=== PATIENT | female | born 1975 | race Caucasian/White ===

== ENCOUNTER 2017-05-12 12:54 | Emergency (ER) | payer OTHER ==
[~2017-05-12] VITALS: Ht 162.6 cm; Wt 70.3 kg
[~2017-05-12 12:54] MED LIST: CITRATE OF MAG296 ML PO; DEPAKOTE125 MG PO; FLEET ENEMA EX230 ML RC; GENTLE LAXATIVE5 M1 PO; NEURONTIN 300M300 M2 PO; OMEPRAZOLE 20 M20 M1 PO; PAXIL10 MG PO; PURELAX17 GM PO; XANAX 0.25 MG0.25 MG PO; ZOFRAN ODT4 MG PO
[2017-05-12] MEDS ORDERED: KEFLEX500 MG PO (13:00)
[2017-05-12] MEDS ORDERED: PERCOCET PO (13:00)
[2017-05-12] MEDS ORDERED: METHYLPHENIDATE10 MG PO (13:01)
[2017-05-12] MEDS ORDERED: LEXAPRO20 MG PO (13:01)
[2017-05-12] MEDS ORDERED: PREDNISONE 20 M20 MG PO ×2 (16:53→17:01)
[2017-05-12] MEDS ORDERED: BENADRYL25 MG PO ×2 (16:53→17:01)
[2017-05-12 16:54] VITALS: BP 111/64
[2017-05-12] MEDS ORDERED: EPIPEN 2-P0.3 MG/0.3 IM (16:55)
== END 2017-05-12 16:54 | disposition home or self-care (01) ==
LOC: ER 12:54
DX: T78.09XA Anaphylactic reaction due to other food products, initial encounter (principal); F31.9 Bipolar disorder, unspecified; F41.9 Anxiety disorder, unspecified; F17.210 Nicotine dependence, cigarettes, uncomplicated; F10.99 Alcohol use, unspecified with unspecified alcohol-induced disorder; X58.XXXA Exposure to other specified factors, initial encounter; Y93.89 Activity, other specified; Y92.89 Other specified places as the place of occurrence of the external cause; Y99.8 Other external cause status

== ENCOUNTER 2017-05-12 22:26 | Emergency (ER) | payer OTHER ==
[~2017-05-12] VITALS: Ht 162.6 cm; Wt 70.3 kg
[~2017-05-12 22:26] MED LIST changes: +BENADRYL25 MG PO; +EPIPEN 2-P0.3 MG/0.3 IM; +KEFLEX500 MG PO; +LEXAPRO20 MG PO; +METHYLPHENIDATE10 MG PO; +PERCOCET PO; +PREDNISONE 20 M20 MG PO
[2017-05-12 22:35] VITALS: BP 142/80
== END 2017-05-12 23:44 | disposition home or self-care (01) ==
LOC: ER 22:26
DX: M26.603 Bilateral temporomandibular joint disorder, unspecified (principal); F31.9 Bipolar disorder, unspecified; F41.9 Anxiety disorder, unspecified; F17.210 Nicotine dependence, cigarettes, uncomplicated; F10.99 Alcohol use, unspecified with unspecified alcohol-induced disorder

== ENCOUNTER 2017-11-16 16:56 | Emergency (ER) | payer OTHER ==
[~2017-11-16] VITALS: Ht 162.6 cm; Wt 73.9 kg
[2017-11-16] MEDS ORDERED: PROMETHAZINE/C118 ML PO (18:42)
== END 2017-11-16 18:57 | disposition home or self-care (01) ==
LOC: ER 16:56
DX: J06.9 Acute upper respiratory infection, unspecified (principal); F31.9 Bipolar disorder, unspecified; F17.210 Nicotine dependence, cigarettes, uncomplicated; F10.99 Alcohol use, unspecified with unspecified alcohol-induced disorder

== ENCOUNTER 2019-03-17 14:12 | Emergency (ER) | payer OTHER ==
[~2019-03-17] VITALS: Ht 162.6 cm; Wt 76.2 kg
[~2019-03-17 14:12] MED LIST changes: +PROMETHAZINE/C118 ML PO
[2019-03-17] MEDS ORDERED: IBUPROFEN 600600 M1 PO (15:53)
[2019-03-17] MEDS ORDERED: NORCO 5-325 TA1 EAC1 PO (15:53)
[2019-03-17 15:57] VITALS: BP 127/79
== END 2019-03-17 18:44 | disposition home or self-care (01) ==
LOC: ER 14:12
DX: S92.901A Unspecified fracture of right foot, initial encounter for closed fracture (principal); F31.9 Bipolar disorder, unspecified; F41.9 Anxiety disorder, unspecified; F17.210 Nicotine dependence, cigarettes, uncomplicated; W22.8XXA Striking against or struck by other objects, initial encounter; Y92.89 Other specified places as the place of occurrence of the external cause; Y99.8 Other external cause status

== ENCOUNTER 2021-09-18 10:09 | Emergency (ER) | payer OTHER ==
[~2021-09-18] VITALS: Ht 162.6 cm; Wt 78.0 kg
[~2021-09-18 10:09] MED LIST changes: +IBUPROFEN 600600 M1 PO; +NORCO 5-325 TA1 EAC1 PO
[2021-09-18 10:32] LABS: URINE BILIRUBIN NEGATIVE (Negative); URINE BLOOD NEGATIVE (Negative); URINE CLARITY CLEAR; URINE COLOR YELLOW; URINE GLUCOSE-RANDOM* NEGATIVE (Negative); URINE KETONES NEGATIVE (Negative); URINE LEUKOCYTES-REFLEX NEGATIVE (Negative); URINE NITRITE-REFLEX NEGATIVE (Negative); URINE PROTEIN (DIPSTICK) NEGATIVE (Negative); URINE UROBILINOGEN 0.2 E.U./dl (0.2-1.0)
[2021-09-18 10:41] VITALS: BP 118/70
[2021-09-18 11:07] LABS: ABSOLUTE NEUTROPHILS 6.3 thou/uL (1.4-8.2); BASOPHILS 0.2 % (0.0-2.0); EOSINOPHILS 1.8 % (0.0-3.0); HEMATOCRIT 40.5 % (37.0-47.0); HEMOGLOBIN 13.6 gm/dL (12.0-15.0); LYMPHOCYTES 4.1 % (24.0-44.0); MCH 31.3 pg (26.0-34.0); MCHC 33.6 g/dL (28.0-37.0); MCV 93.1 fL (80.0-100.0); MONOCYTES 6.2 % (1.0-8.0); PLATELET COUNT 202 thou/uL (150-400); POLYS 87.7 % (36.0-66.0); RBC 4.35 mil/uL (4.20-5.00); RDW 12.9 % (10.5-14.5); WBC 7.1 thou/uL (4.0-11.0)
[2021-09-18 11:14] LABS: CALCIUM 8.9 mg/dL (8.5-10.1); CREATININE 0.9 mg/dL (0.6-1.0); POTASSIUM 3.7 mmol/L (3.5-5.1)
[2021-09-18 11:20] LABS: ALBUMIN 3.8 g/dL (3.4-5.0); TOTAL BILIRUBIN 0.3 mg/dL (0.2-1.0); TOTAL PROTEIN 6.8 g/dL (6.4-8.2)
[2021-09-18] MEDS ORDERED: METHOCARBAMOL500 M2 PO (13:53)
[2021-09-18] MEDS ORDERED: MEDROLDOSEPACK PO (13:53)
== END 2021-09-18 14:04 | disposition home or self-care (01) ==
LOC: ER 10:09
PROVIDERS: Emergency Medicine
DX: N83.202 Unspecified ovarian cyst, left side (principal); M54.50 Low back pain, unspecified; F31.9 Bipolar disorder, unspecified; F41.9 Anxiety disorder, unspecified; F17.210 Nicotine dependence, cigarettes, uncomplicated; Z90.89 Acquired absence of other organs; Z79.891 Long term (current) use of opiate analgesic; Z79.899 Other long term (current) drug therapy